=== PATIENT | male | born 1980 | race Caucasian/White ===

== ENCOUNTER 2017-11-18 19:06 | Emergency (ER) | payer SELFPAY ==
[~2017-11-18] VITALS: Ht 180.3 cm; Wt 111.1 kg
[2017-11-18 19:16] VITALS: BP_SYST 147
[2017-11-18 20:21] VITALS: BP_SYST 142
== END 2017-11-18 20:21 | disposition home or self-care (01) ==
LOC: SED 19:06
DX: F41.9 Anxiety disorder, unspecified (principal); F20.9 Schizophrenia, unspecified; F32.9 Major depressive disorder, single episode, unspecified; R03.0 Elevated blood-pressure reading, without diagnosis of hypertension; Z76.0 Encounter for issue of repeat prescription
CPT/HCPCS: 99283